=== PATIENT | male | born 1965 | race Two or more races ===

== ENCOUNTER 2021-06-13 15:54 | Inpatient (IN) | payer OTHER ==
[~2021-06-13] VITALS: Ht 167.6 cm; Wt 78.2 kg
[2021-06-13 18:05] VITALS: BP 131/87
[2021-06-13] MEDS ORDERED: MELATONIN 3 MG TABLET PO PRN (18:30)
[2021-06-13] MEDS ORDERED: DEXTROSE 50%-WATER 25 GM/50 ML SYRINGE IVP PRN (18:30)
[2021-06-13] MEDS ORDERED: ACETAMINOPHEN 325 MG TABLET PO PRN (18:30)
[2021-06-13] MEDS ORDERED: NAPHAZOLINE/PHENIR 0.025-0.3% 15 ML OPHTHALMIC SOLUTION OU PRN (20:00)
[2021-06-13] MEDS ORDERED: PNEUMOCOCCAL VACCINE POLYVALENT 0.5 ML VIAL [PPSV23] IM. ONE (20:15)
[2021-06-13] MEDS: ETHYL ALCOHOL 62% ANTISEPTIC NASAL INHALANT 0.6 ML AMPUL NASAL SCH (21:13)
[2021-06-13] MEDS: ATORVASTATIN CALCIUM 40 MG TABLET PO SCH (21:13)
[2021-06-13] MEDS: SENNA 187 MG TABLET PO SCH (21:13)
[2021-06-13] MEDS: DOCUSATE SODIUM 100 MG CAPSULE PO SCH (21:13)
[2021-06-13] MEDS: INSULIN LISPRO 100 UNITS/ML SQ PRN (21:53)
[2021-06-13 22:17] LABS: GLUCOMETER DEV NAME(LOC) 2WR.2B; GLUCOSE,POINT OF CARE 310 MG/DL (70-110)
[2021-06-14] VITALS: BP 116/72
[2021-06-14] MEDS ORDERED: ATEN-72 PO (05:49)
[2021-06-14] MEDS ORDERED: METF-1211 PO (05:49)
[2021-06-14] MEDS: FAMOTIDINE 20 MG TABLET PO SCH ×2 (06:09→16:45)
[2021-06-14 06:11] LABS: GLUCOMETER DEV NAME(LOC) 2WR.1C; GLUCOSE,POINT OF CARE 282 MG/DL (70-110)
[2021-06-14 06:46] LABS: BASOPHILS % (AUTO) 0.8 % (0.0-2.0); EOSINOPHILS % (AUTO) 1.9 % (1.0-6.0); HEMATOCRIT 40.7 % (41-53); HEMOGLOBIN 14.5 g/dL (13.5-17.5); LYMPHOCYTES # (AUTO) 2.5 K/uL (1.0-4.8); LYMPHOCYTES % (AUTO) 32.1 % (22.0-44.0); MEAN CORPUSCULAR HEMOGLOBIN 30.7 pg (26.0-34.0); MEAN CORPUSCULAR HGB CONC 35.7 G/dL (31.0-37.0); MEAN CORPUSCULAR VOLUME 86 fL (80-100); MONOCYTES # (AUTO) 0.7 K/uL (0.1-1.0); MONOCYTES % (AUTO) 9.3 % (2.0-9.0); NEUTROPHILS # (AUTO) 4.3 K/uL (1.8-7.7); NEUTROPHILS % (AUTO) 55.9 % (40.0-70.0); PLATELET COUNT (AUTO) 211 K/uL (150-450); RED BLOOD CELL COUNT(AUTO) 4.72 MIL/uL (4.50-5.90); RED CELL DISTRIBUTION WIDTH 13.1 % (11.5-14.5)
[2021-06-14] MEDS ORDERED: INSULIN GLARGINE,HUM.REC.ANLOG 100 UNITS/ML SQ SCH (07:00)
[2021-06-14 07:08] LABS: ALANINE AMINOTRANSFERASE 46 U/L (12-78); ALBUMIN 3.6 g/dL (3.4-5.0); ALKALINE PHOSPHATASE 63 U/L (46-116); ANION GAP 7 mmol/L (8-16); ASPARTATE AMINOTRANSFERASE 17 U/L (15-37); BILIRUBIN,TOTAL 0.5 mg/dL (0.1-1.0); CALCIUM, TOTAL 8.5 mg/dL (8.8-10.5); CARBON DIOXIDE 26 mmol/L (22-29); CHLORIDE 101 mmol/L (98-107); CREATININE 1.05 mg/dL (0.60-1.30); GLOMERULAR FILTR. RATE CALC > 60 mL/min (>60); GLUCOSE,RANDOM 268 mg/dL (70-110); SODIUM SERUM 134 mmol/L (136-145); TOTAL PROTEIN, SERUM 7.3 g/dL (6.4-8.2); UREA NITROGEN, BLOOD 18 mg/dL (7-18)
[2021-06-14] MEDS: GlipiZIDE 10 MG TABLET PO SCH ×2 (07:47→16:45)
[2021-06-14] MEDS: INSULIN LISPRO 100 UNITS/ML SQ PRN ×3 (07:50→17:35)
[2021-06-14] MEDS: ASPIRIN 81 MG CHEWABLE TABLET PO SCH (07:51)
[2021-06-14] MEDS: MetFORMIN HCL 500 MG TABLET PO SCH ×2 (07:52→16:52)
[2021-06-14] MEDS: ATENOLOL 50 MG TABLET PO SCH (07:52)
[2021-06-14] MEDS: DOCUSATE SODIUM 100 MG CAPSULE PO SCH ×2 (07:52→20:04)
[2021-06-14] MEDS: ETHYL ALCOHOL 62% ANTISEPTIC NASAL INHALANT 0.6 ML AMPUL NASAL SCH ×2 (07:52→20:04)
[2021-06-14] MEDS: CLOPIDOGREL BISULFATE 75 MG TABLET PO SCH (07:54)
[2021-06-14 09:29] VITALS: BP 113/70
[2021-06-14 11:41] LABS: GLUCOMETER DEV NAME(LOC) 2WR.1C; GLUCOSE,POINT OF CARE 238 MG/DL (70-110)
[2021-06-14 16:30] VITALS: BP 124/73
[2021-06-14 18:02] LABS: GLUCOMETER DEV NAME(LOC) 2WR.1C; GLUCOSE,POINT OF CARE 165 MG/DL (70-110)
[2021-06-14] MEDS: TraZODone HCL 50 MG TABLET PO SCH (20:04)
[2021-06-14] MEDS: ATORVASTATIN CALCIUM 40 MG TABLET PO SCH (20:04)
[2021-06-14] MEDS: SENNA 187 MG TABLET PO SCH (20:04)
[2021-06-15 05:16] LABS: GLUCOMETER DEV NAME(LOC) 2WR.1C; GLUCOSE,POINT OF CARE 79 MG/DL (70-110)
[2021-06-15 05:45] VITALS: BP 116/67
[2021-06-15] MEDS: FAMOTIDINE 20 MG TABLET PO SCH ×2 (05:48→16:21)
[2021-06-15 05:57] LABS: GLUCOMETER DEV NAME(LOC) 2WR.2B; GLUCOSE,POINT OF CARE 133 MG/DL (70-110)
[2021-06-15] MEDS: DOCUSATE SODIUM 100 MG CAPSULE PO SCH ×2 (07:50→20:58)
[2021-06-15] MEDS: CLOPIDOGREL BISULFATE 75 MG TABLET PO SCH (07:50)
[2021-06-15] MEDS: MetFORMIN HCL 500 MG TABLET PO SCH ×2 (07:50→16:55)
[2021-06-15] MEDS: ASPIRIN 81 MG CHEWABLE TABLET PO SCH (07:50)
[2021-06-15] MEDS: ETHYL ALCOHOL 62% ANTISEPTIC NASAL INHALANT 0.6 ML AMPUL NASAL SCH ×2 (07:51→20:58)
[2021-06-15] MEDS: INSULIN GLARGINE,HUM.REC.ANLOG 100 UNITS/ML SQ SCH (07:55)
[2021-06-15] MEDS: ATENOLOL 50 MG TABLET PO SCH (09:11)
[2021-06-15] MEDS: GlipiZIDE 10 MG TABLET PO SCH ×2 (09:11→16:21)
[2021-06-15 11:05] VITALS: BP 110/67
[2021-06-15 12:22] LABS: GLUCOMETER DEV NAME(LOC) 2WR.2B; GLUCOSE,POINT OF CARE 201 MG/DL (70-110)
[2021-06-15] MEDS: INSULIN LISPRO 100 UNITS/ML SQ PRN ×3 (12:42→21:19)
[2021-06-15 16:11] VITALS: BP 120/69
[2021-06-15 17:51] LABS: GLUCOMETER DEV NAME(LOC) 2WR.2B; GLUCOSE,POINT OF CARE 163 MG/DL (70-110)
[2021-06-15] MEDS: SENNA 187 MG TABLET PO SCH (20:58)
[2021-06-15] MEDS: ATORVASTATIN CALCIUM 40 MG TABLET PO SCH (20:58)
[2021-06-15] MEDS: TraZODone HCL 50 MG TABLET PO SCH (20:58)
[2021-06-15 23:06] LABS: GLUCOMETER DEV NAME(LOC) 2WR.2B; GLUCOSE,POINT OF CARE 148 MG/DL (70-110)
[2021-06-16 04:55] VITALS: BP 113/64
[2021-06-16] MEDS: FAMOTIDINE 20 MG TABLET PO SCH ×2 (05:43→16:33)
[2021-06-16 05:57] LABS: GLUCOMETER DEV NAME(LOC) 2WR.1C; GLUCOSE,POINT OF CARE 156 MG/DL (70-110)
[2021-06-16] MEDS: CLOPIDOGREL BISULFATE 75 MG TABLET PO SCH (07:55)
[2021-06-16] MEDS: ASPIRIN 81 MG CHEWABLE TABLET PO SCH (07:55)
[2021-06-16] MEDS: DOCUSATE SODIUM 100 MG CAPSULE PO SCH ×2 (07:55→20:18)
[2021-06-16] MEDS: MetFORMIN HCL 500 MG TABLET PO SCH ×2 (07:55→16:35)
[2021-06-16] MEDS: GlipiZIDE 10 MG TABLET PO SCH ×2 (07:55→16:33)
[2021-06-16] MEDS: ATENOLOL 50 MG TABLET PO SCH (07:55)
[2021-06-16] MEDS: INSULIN GLARGINE,HUM.REC.ANLOG 100 UNITS/ML SQ SCH (07:56)
[2021-06-16] MEDS: INSULIN LISPRO 100 UNITS/ML SQ PRN ×4 (07:57→21:04)
[2021-06-16] MEDS: ETHYL ALCOHOL 62% ANTISEPTIC NASAL INHALANT 0.6 ML AMPUL NASAL SCH ×2 (07:59→20:59)
[2021-06-16 08:02] VITALS: BP 116/62
[2021-06-16 16:03] VITALS: BP 110/73
[2021-06-16 19:31] LABS: GLUCOMETER DEV NAME(LOC) 2WR.1C; GLUCOSE,POINT OF CARE 157 MG/DL (70-110)
[2021-06-16] MEDS: SENNA 187 MG TABLET PO SCH (20:18)
[2021-06-16] MEDS: ATORVASTATIN CALCIUM 40 MG TABLET PO SCH (20:59)
[2021-06-16] MEDS: TraZODone HCL 50 MG TABLET PO SCH (20:59)
[2021-06-16 22:03] VITALS: BP 119/65
[2021-06-16 22:41] LABS: GLUCOMETER DEV NAME(LOC) 2WR.2B; GLUCOSE,POINT OF CARE 160 MG/DL (70-110)
[2021-06-17] MEDS: FAMOTIDINE 20 MG TABLET PO SCH ×2 (06:02→15:59)
[2021-06-17 06:11] LABS: GLUCOMETER DEV NAME(LOC) 2WR.2B; GLUCOSE,POINT OF CARE 146 MG/DL (70-110)
[2021-06-17] MEDS: GlipiZIDE 10 MG TABLET PO SCH ×2 (07:55→15:59)
[2021-06-17] MEDS: INSULIN GLARGINE,HUM.REC.ANLOG 100 UNITS/ML SQ SCH (07:56)
[2021-06-17] MEDS: ASPIRIN 81 MG CHEWABLE TABLET PO SCH (07:56)
[2021-06-17] MEDS: INSULIN LISPRO 100 UNITS/ML SQ PRN ×3 (07:57→20:52)
[2021-06-17] MEDS: ETHYL ALCOHOL 62% ANTISEPTIC NASAL INHALANT 0.6 ML AMPUL NASAL SCH ×2 (07:58→20:53)
[2021-06-17] MEDS: MetFORMIN HCL 500 MG TABLET PO SCH ×2 (07:58→16:35)
[2021-06-17] MEDS: ATENOLOL 50 MG TABLET PO SCH (08:21)
[2021-06-17] MEDS: CLOPIDOGREL BISULFATE 75 MG TABLET PO SCH (08:21)
[2021-06-17] MEDS: DOCUSATE SODIUM 100 MG CAPSULE PO SCH ×2 (08:21→20:55)
[2021-06-17 08:30] VITALS: BP 119/68
[2021-06-17 13:25] LABS: GLUCOMETER DEV NAME(LOC) 2WR.2B; GLUCOSE,POINT OF CARE 112 MG/DL (70-110)
[2021-06-17 17:06] LABS: GLUCOMETER DEV NAME(LOC) 2WR.2B; GLUCOSE,POINT OF CARE 185 MG/DL (70-110)
[2021-06-17 17:32] VITALS: BP 115/69
[2021-06-17] MEDS: ATORVASTATIN CALCIUM 40 MG TABLET PO SCH (20:53)
[2021-06-17] MEDS: TraZODone HCL 50 MG TABLET PO SCH (20:53)
[2021-06-17] MEDS: SENNA 187 MG TABLET PO SCH (20:55)
[2021-06-17 22:36] LABS: GLUCOMETER DEV NAME(LOC) 2WR.2B; GLUCOSE,POINT OF CARE 144 MG/DL (70-110)
[2021-06-17 23:27] VITALS: BP 122/71
[2021-06-18] MEDS: FAMOTIDINE 20 MG TABLET PO SCH ×2 (06:27→16:26)
[2021-06-18 08:00] VITALS: BP 127/78
[2021-06-18 08:31] LABS: GLUCOMETER DEV NAME(LOC) 2WR.1C; GLUCOSE,POINT OF CARE 121 MG/DL (70-110)
[2021-06-18] MEDS: DOCUSATE SODIUM 100 MG CAPSULE PO SCH ×3 (09:00→20:31)
[2021-06-18] MEDS: GlipiZIDE 10 MG TABLET PO SCH ×2 (09:09→16:26)
[2021-06-18] MEDS: MetFORMIN HCL 500 MG TABLET PO SCH ×2 (09:09→16:26)
[2021-06-18] MEDS: ATENOLOL 50 MG TABLET PO SCH (09:09)
[2021-06-18] MEDS: ASPIRIN 81 MG CHEWABLE TABLET PO SCH (09:09)
[2021-06-18] MEDS: ETHYL ALCOHOL 62% ANTISEPTIC NASAL INHALANT 0.6 ML AMPUL NASAL SCH ×2 (09:09→20:30)
[2021-06-18] MEDS: CLOPIDOGREL BISULFATE 75 MG TABLET PO SCH (09:09)
[2021-06-18] MEDS: INSULIN GLARGINE,HUM.REC.ANLOG 100 UNITS/ML SQ SCH (09:11)
[2021-06-18 12:56] LABS: GLUCOMETER DEV NAME(LOC) 2WR.2B; GLUCOSE,POINT OF CARE 107 MG/DL (70-110)
[2021-06-18 16:30] VITALS: BP 121/74
[2021-06-18 17:16] LABS: GLUCOMETER DEV NAME(LOC) 2WR.2B; GLUCOSE,POINT OF CARE 139 MG/DL (70-110)
[2021-06-18] MEDS: ATORVASTATIN CALCIUM 40 MG TABLET PO SCH (20:30)
[2021-06-18] MEDS: TraZODone HCL 50 MG TABLET PO SCH (20:30)
[2021-06-18] MEDS: SENNA 187 MG TABLET PO SCH (20:31)
[2021-06-18] MEDS: INSULIN LISPRO 100 UNITS/ML SQ PRN (20:41)
[2021-06-18 22:00] LABS: GLUCOMETER DEV NAME(LOC) 2WR.2B; GLUCOSE,POINT OF CARE 189 MG/DL (70-110)
[2021-06-19] VITALS: BP 133/75
[2021-06-19] MEDS: FAMOTIDINE 20 MG TABLET PO SCH ×2 (05:52→16:47)
[2021-06-19 06:26] LABS: GLUCOMETER DEV NAME(LOC) 2WR.2B; GLUCOSE,POINT OF CARE 127 MG/DL (70-110)
[2021-06-19 08:00] VITALS: BP 114/55
[2021-06-19] MEDS: CLOPIDOGREL BISULFATE 75 MG TABLET PO SCH (08:36)
[2021-06-19] MEDS: MetFORMIN HCL 500 MG TABLET PO SCH ×2 (08:36→16:47)
[2021-06-19] MEDS: ETHYL ALCOHOL 62% ANTISEPTIC NASAL INHALANT 0.6 ML AMPUL NASAL SCH ×2 (08:36→21:29)
[2021-06-19] MEDS: ASPIRIN 81 MG CHEWABLE TABLET PO SCH (08:36)
[2021-06-19] MEDS: ATENOLOL 50 MG TABLET PO SCH (08:36)
[2021-06-19] MEDS: GlipiZIDE 10 MG TABLET PO SCH ×2 (08:36→17:26)
[2021-06-19] MEDS: INSULIN GLARGINE,HUM.REC.ANLOG 100 UNITS/ML SQ SCH (08:38)
[2021-06-19] MEDS: DOCUSATE SODIUM 100 MG CAPSULE PO SCH ×2 (08:39→21:00)
[2021-06-19 12:31] LABS: GLUCOMETER DEV NAME(LOC) 2WR.2B; GLUCOSE,POINT OF CARE 115 MG/DL (70-110)
[2021-06-19 15:19] VITALS: BP 123/90
[2021-06-19] MEDS: HYDROCORTISONE 1% 30 GM OINTMENT TP SCH ×2 (16:46→21:24)
[2021-06-19] MEDS: INSULIN LISPRO 100 UNITS/ML SQ PRN (17:34)
[2021-06-19 18:50] LABS: GLUCOMETER DEV NAME(LOC) 2WR.2B; GLUCOSE,POINT OF CARE 148 MG/DL (70-110)
[2021-06-19] MEDS: TraZODone HCL 100 MG TABLET PO SCH (21:00)
[2021-06-19] MEDS: SENNA 187 MG TABLET PO SCH (21:00)
[2021-06-19] MEDS: ATORVASTATIN CALCIUM 40 MG TABLET PO SCH (21:24)
[2021-06-19 22:11] LABS: GLUCOMETER DEV NAME(LOC) 2WR.2B; GLUCOSE,POINT OF CARE 128 MG/DL (70-110)
[2021-06-20 05:37] VITALS: BP 106/67
[2021-06-20 06:26] LABS: GLUCOMETER DEV NAME(LOC) 2WR.1C; GLUCOSE,POINT OF CARE 74 MG/DL (70-110)
[2021-06-20] MEDS: ETHYL ALCOHOL 62% ANTISEPTIC NASAL INHALANT 0.6 ML AMPUL NASAL SCH ×2 (07:30→20:38)
[2021-06-20] MEDS: HYDROCORTISONE 1% 30 GM OINTMENT TP SCH ×2 (07:31→20:39)
[2021-06-20] MEDS: FAMOTIDINE 20 MG TABLET PO SCH ×2 (07:31→16:24)
[2021-06-20] MEDS: ASPIRIN 81 MG CHEWABLE TABLET PO SCH (07:31)
[2021-06-20] MEDS: MetFORMIN HCL 500 MG TABLET PO SCH ×2 (07:32→16:24)
[2021-06-20] MEDS: ATENOLOL 50 MG TABLET PO SCH (07:32)
[2021-06-20] MEDS: CLOPIDOGREL BISULFATE 75 MG TABLET PO SCH (07:32)
[2021-06-20] MEDS: GlipiZIDE 10 MG TABLET PO SCH ×2 (07:32→16:24)
[2021-06-20] MEDS: INSULIN GLARGINE,HUM.REC.ANLOG 100 UNITS/ML SQ SCH (07:40)
[2021-06-20 08:01] VITALS: BP 124/71
[2021-06-20] MEDS: DOCUSATE SODIUM 100 MG CAPSULE PO SCH ×2 (09:00→20:38)
[2021-06-20 16:04] VITALS: BP 117/71
[2021-06-20 17:06] LABS: GLUCOMETER DEV NAME(LOC) 2WR.2B; GLUCOSE,POINT OF CARE 110 MG/DL (70-110)
[2021-06-20] MEDS: TraZODone HCL 100 MG TABLET PO SCH (20:38)
[2021-06-20] MEDS: ATORVASTATIN CALCIUM 40 MG TABLET PO SCH (20:38)
[2021-06-20] MEDS: SENNA 187 MG TABLET PO SCH (20:39)
[2021-06-20 21:11] LABS: GLUCOMETER DEV NAME(LOC) 2WR.2B; GLUCOSE,POINT OF CARE 109 MG/DL (70-110)
[2021-06-21 05:32] LABS: GLUCOMETER DEV NAME(LOC) 2WR.1C; GLUCOSE,POINT OF CARE 129 MG/DL (70-110)
[2021-06-21] MEDS: FAMOTIDINE 20 MG TABLET PO SCH ×2 (05:46→17:26)
[2021-06-21 05:47] VITALS: BP 130/74
[2021-06-21] MEDS: MetFORMIN HCL 500 MG TABLET PO SCH ×2 (07:47→17:27)
[2021-06-21] MEDS: ETHYL ALCOHOL 62% ANTISEPTIC NASAL INHALANT 0.6 ML AMPUL NASAL SCH ×2 (07:47→20:28)
[2021-06-21] MEDS: ATENOLOL 50 MG TABLET PO SCH (07:47)
[2021-06-21] MEDS: HYDROCORTISONE 1% 30 GM OINTMENT TP SCH ×2 (07:47→20:32)
[2021-06-21] MEDS: CLOPIDOGREL BISULFATE 75 MG TABLET PO SCH (07:47)
[2021-06-21] MEDS: ASPIRIN 81 MG CHEWABLE TABLET PO SCH (07:47)
[2021-06-21] MEDS: GlipiZIDE 10 MG TABLET PO SCH ×2 (07:49→17:27)
[2021-06-21] MEDS: INSULIN GLARGINE,HUM.REC.ANLOG 100 UNITS/ML SQ SCH (07:52)
[2021-06-21 08:06] LABS: GLUCOMETER DEV NAME(LOC) 2WR.1C; GLUCOSE,POINT OF CARE 112 MG/DL (70-110)
[2021-06-21 08:30] VITALS: BP 116/71
[2021-06-21] MEDS: DOCUSATE SODIUM 100 MG CAPSULE PO SCH ×2 (09:00→20:19)
[2021-06-21] MEDS ORDERED: GLIP10 PO (10:47)
[2021-06-21] MEDS ORDERED: ATEN-72 PO (10:47)
[2021-06-21] MEDS ORDERED: DOCU-119 PO (10:47)
[2021-06-21] MEDS ORDERED: CLOP75TA60 PO (10:47)
[2021-06-21] MEDS ORDERED: ATOR40TA71 PO (10:47)
[2021-06-21] MEDS ORDERED: FAMO20 PO (10:47)
[2021-06-21] MEDS ORDERED: ASPI81 PO (10:47)
[2021-06-21] MEDS ORDERED: INSU100V SQ (10:48)
[2021-06-21] MEDS ORDERED: METF-1211 PO (10:48)
[2021-06-21] MEDS ORDERED: INSLAN SQ (10:48)
[2021-06-21] MEDS ORDERED: SENN-187 PO (10:48)
[2021-06-21] MEDS ORDERED: NAPH15DR75 OU (10:48)
[2021-06-21 14:25] LABS: GLUCOMETER DEV NAME(LOC) 2WR.1C; GLUCOSE,POINT OF CARE 122 MG/DL (70-110)
[2021-06-21 16:02] VITALS: BP 118/72
[2021-06-21] MEDS: SENNA 187 MG TABLET PO SCH (20:19)
[2021-06-21] MEDS: ATORVASTATIN CALCIUM 40 MG TABLET PO SCH (20:31)
[2021-06-21] MEDS: TraZODone HCL 100 MG TABLET PO SCH ×2 (20:32→20:34)
[2021-06-21 21:57] LABS: GLUCOMETER DEV NAME(LOC) 2WR.2B; GLUCOSE,POINT OF CARE 98 MG/DL (70-110)
[2021-06-21 23:40] LABS: GLUCOMETER DEV NAME(LOC) 2WR.1C; GLUCOSE,POINT OF CARE 134 MG/DL (70-110)
[2021-06-22] VITALS: BP 117/75
[2021-06-22] MEDS: FAMOTIDINE 20 MG TABLET PO SCH ×2 (05:58→16:05)
[2021-06-22 06:21] LABS: GLUCOMETER DEV NAME(LOC) 2WR.2B; GLUCOSE,POINT OF CARE 97 MG/DL (70-110)
[2021-06-22] MEDS: GlipiZIDE 10 MG TABLET PO SCH ×2 (07:41→16:06)
[2021-06-22] MEDS: HYDROCORTISONE 1% 30 GM OINTMENT TP SCH ×2 (07:41→21:00)
[2021-06-22] MEDS: MetFORMIN HCL 500 MG TABLET PO SCH ×2 (07:41→16:06)
[2021-06-22] MEDS: ASPIRIN 81 MG CHEWABLE TABLET PO SCH (07:41)
[2021-06-22] MEDS: ATENOLOL 50 MG TABLET PO SCH (07:41)
[2021-06-22] MEDS: CLOPIDOGREL BISULFATE 75 MG TABLET PO SCH (07:42)
[2021-06-22] MEDS: ETHYL ALCOHOL 62% ANTISEPTIC NASAL INHALANT 0.6 ML AMPUL NASAL SCH ×2 (07:42→20:59)
[2021-06-22] MEDS: INSULIN GLARGINE,HUM.REC.ANLOG 100 UNITS/ML SQ SCH (07:43)
[2021-06-22 08:01] VITALS: BP 120/56
[2021-06-22] MEDS: DOCUSATE SODIUM 100 MG CAPSULE PO SCH ×2 (08:25→21:00)
[2021-06-22 12:56] LABS: GLUCOMETER DEV NAME(LOC) 2WR.2B; GLUCOSE,POINT OF CARE 103 MG/DL (70-110)
[2021-06-22 16:30] VITALS: BP 120/65
[2021-06-22 16:51] LABS: GLUCOMETER DEV NAME(LOC) 2WR.2B; GLUCOSE,POINT OF CARE 113 MG/DL (70-110)
[2021-06-22] MEDS: ATORVASTATIN CALCIUM 40 MG TABLET PO SCH (21:00)
[2021-06-22] MEDS: SENNA 187 MG TABLET PO SCH (21:00)
[2021-06-22] MEDS: TraZODone HCL 100 MG TABLET PO SCH (21:00)
[2021-06-22] MEDS: INSULIN LISPRO 100 UNITS/ML SQ PRN (21:13)
[2021-06-22 21:51] LABS: GLUCOMETER DEV NAME(LOC) 2WR.2B; GLUCOSE,POINT OF CARE 246 MG/DL (70-110)
[2021-06-23] MEDS: FAMOTIDINE 20 MG TABLET PO SCH ×2 (05:50→16:00)
[2021-06-23 05:51] VITALS: BP 127/70
[2021-06-23 06:11] LABS: GLUCOMETER DEV NAME(LOC) 2WR.2B; GLUCOSE,POINT OF CARE 139 MG/DL (70-110)
[2021-06-23] MEDS: ASPIRIN 81 MG CHEWABLE TABLET PO SCH (07:52)
[2021-06-23] MEDS: MetFORMIN HCL 500 MG TABLET PO SCH ×2 (07:52→16:00)
[2021-06-23] MEDS: GlipiZIDE 10 MG TABLET PO SCH ×2 (07:52→16:00)
[2021-06-23] MEDS: INSULIN GLARGINE,HUM.REC.ANLOG 100 UNITS/ML SQ SCH (07:59)
[2021-06-23] MEDS: ETHYL ALCOHOL 62% ANTISEPTIC NASAL INHALANT 0.6 ML AMPUL NASAL SCH ×2 (08:04→20:00)
[2021-06-23] MEDS: HYDROCORTISONE 1% 30 GM OINTMENT TP SCH ×2 (08:46→20:00)
[2021-06-23] MEDS: ATENOLOL 50 MG TABLET PO SCH (08:46)
[2021-06-23] MEDS: CLOPIDOGREL BISULFATE 75 MG TABLET PO SCH (08:46)
[2021-06-23] MEDS: DOCUSATE SODIUM 100 MG CAPSULE PO SCH ×2 (08:47→20:01)
[2021-06-23 09:00] VITALS: BP 132/75
[2021-06-23] MEDS ORDERED: INSU100V SQ (10:35)
[2021-06-23 13:51] LABS: GLUCOMETER DEV NAME(LOC) 2WR.2B; GLUCOSE,POINT OF CARE 88 MG/DL (70-110)
[2021-06-23 16:29] VITALS: BP 126/72
[2021-06-23 17:46] LABS: GLUCOMETER DEV NAME(LOC) 2WR.1C; GLUCOSE,POINT OF CARE 125 MG/DL (70-110)
[2021-06-23] MEDS: ATORVASTATIN CALCIUM 40 MG TABLET PO SCH (20:00)
[2021-06-23] MEDS: TraZODone HCL 100 MG TABLET PO SCH (20:01)
[2021-06-23] MEDS: SENNA 187 MG TABLET PO SCH (20:01)
[2021-06-23 20:35] LABS: GLUCOMETER DEV NAME(LOC) 2WR.2B; GLUCOSE,POINT OF CARE 100 MG/DL (70-110)
[2021-06-24] VITALS: BP 112/61
[2021-06-24] MEDS: FAMOTIDINE 20 MG TABLET PO SCH ×2 (06:03→17:11)
[2021-06-24 06:16] LABS: GLUCOMETER DEV NAME(LOC) 2WR.1C; GLUCOSE,POINT OF CARE 93 MG/DL (70-110)
[2021-06-24] MEDS: ETHYL ALCOHOL 62% ANTISEPTIC NASAL INHALANT 0.6 ML AMPUL NASAL SCH ×2 (08:03→21:55)
[2021-06-24] MEDS: ASPIRIN 81 MG CHEWABLE TABLET PO SCH (08:04)
[2021-06-24] MEDS: GlipiZIDE 10 MG TABLET PO SCH ×2 (08:04→17:11)
[2021-06-24] MEDS: MetFORMIN HCL 500 MG TABLET PO SCH ×2 (08:04→17:11)
[2021-06-24] MEDS: INSULIN GLARGINE,HUM.REC.ANLOG 100 UNITS/ML SQ SCH (08:05)
[2021-06-24] MEDS: HYDROCORTISONE 1% 30 GM OINTMENT TP SCH ×2 (08:29→21:55)
[2021-06-24] MEDS: CLOPIDOGREL BISULFATE 75 MG TABLET PO SCH (08:29)
[2021-06-24] MEDS: DOCUSATE SODIUM 100 MG CAPSULE PO SCH ×2 (08:29→21:00)
[2021-06-24] MEDS: ATENOLOL 50 MG TABLET PO SCH (08:29)
[2021-06-24 09:00] VITALS: BP 118/71
[2021-06-24 15:26] LABS: GLUCOMETER DEV NAME(LOC) 2WR.1C; GLUCOSE,POINT OF CARE 86 MG/DL (70-110)
[2021-06-24 16:09] VITALS: BP 120/73
[2021-06-24 19:00] VITALS: BP 112/68
[2021-06-24 19:01] LABS: GLUCOMETER DEV NAME(LOC) 2WR.2B; GLUCOSE,POINT OF CARE 100 MG/DL (70-110)
[2021-06-24] MEDS: TraZODone HCL 100 MG TABLET PO SCH (21:00)
[2021-06-24] MEDS: SENNA 187 MG TABLET PO SCH (21:00)
[2021-06-24] MEDS: INSULIN LISPRO 100 UNITS/ML SQ PRN (21:05)
[2021-06-24] MEDS: ATORVASTATIN CALCIUM 40 MG TABLET PO SCH (21:55)
[2021-06-24 22:16] LABS: GLUCOMETER DEV NAME(LOC) 2WR.2B; GLUCOSE,POINT OF CARE 208 MG/DL (70-110)
[2021-06-25] VITALS: BP 113/65
[2021-06-25] MEDS: FAMOTIDINE 20 MG TABLET PO SCH ×2 (06:10→16:39)
[2021-06-25 06:22] LABS: GLUCOMETER DEV NAME(LOC) 2WR.1C; GLUCOSE,POINT OF CARE 106 MG/DL (70-110)
[2021-06-25 07:03] LABS: BASOPHILS % (AUTO) 0.9 % (0.0-2.0); EOSINOPHILS % (AUTO) 2.5 % (1.0-6.0); HEMATOCRIT 39.8 % (41-53); HEMOGLOBIN 14.1 g/dL (13.5-17.5); LYMPHOCYTES # (AUTO) 2.2 K/uL (1.0-4.8); LYMPHOCYTES % (AUTO) 32.9 % (22.0-44.0); MEAN CORPUSCULAR HEMOGLOBIN 30.2 pg (26.0-34.0); MEAN CORPUSCULAR HGB CONC 35.5 G/dL (31.0-37.0); MEAN CORPUSCULAR VOLUME 85 fL (80-100); MONOCYTES # (AUTO) 0.6 K/uL (0.1-1.0); MONOCYTES % (AUTO) 8.6 % (2.0-9.0); NEUTROPHILS # (AUTO) 3.7 K/uL (1.8-7.7); NEUTROPHILS % (AUTO) 55.1 % (40.0-70.0); PLATELET COUNT (AUTO) 214 K/uL (150-450); RED BLOOD CELL COUNT(AUTO) 4.68 MIL/uL (4.50-5.90)
[2021-06-25 07:35] LABS: ANION GAP 6 mmol/L (8-16); CALCIUM, TOTAL 8.9 mg/dL (8.8-10.5); CARBON DIOXIDE 30 mmol/L (22-29); CHLORIDE 102 mmol/L (98-107); CREATININE 0.75 mg/dL (0.60-1.30); GLOMERULAR FILTR. RATE CALC > 60 mL/min (>60); GLUCOSE,RANDOM 116 mg/dL (70-110); POTASSIUM 3.7 mmol/L (3.5-5.1); SODIUM SERUM 138 mmol/L (136-145); UREA NITROGEN, BLOOD 10 mg/dL (7-18)
[2021-06-25] MEDS: ETHYL ALCOHOL 62% ANTISEPTIC NASAL INHALANT 0.6 ML AMPUL NASAL SCH ×2 (07:52→20:09)
[2021-06-25] MEDS: GlipiZIDE 10 MG TABLET PO SCH ×2 (07:53→16:39)
[2021-06-25] MEDS: MetFORMIN HCL 500 MG TABLET PO SCH ×2 (07:53→16:53)
[2021-06-25] MEDS: ASPIRIN 81 MG CHEWABLE TABLET PO SCH (07:53)
[2021-06-25] MEDS: INSULIN GLARGINE,HUM.REC.ANLOG 100 UNITS/ML SQ SCH (07:54)
[2021-06-25] MEDS: HYDROCORTISONE 1% 30 GM OINTMENT TP SCH ×2 (08:23→20:09)
[2021-06-25] MEDS: CLOPIDOGREL BISULFATE 75 MG TABLET PO SCH (08:23)
[2021-06-25] MEDS: ATENOLOL 50 MG TABLET PO SCH (08:23)
[2021-06-25] MEDS: DOCUSATE SODIUM 100 MG CAPSULE PO SCH ×3 (08:26→20:11)
[2021-06-25 09:00] VITALS: BP 124/63
[2021-06-25 10:26] LABS: GLUCOMETER DEV NAME(LOC) 2WR.1C; GLUCOSE,POINT OF CARE 228 MG/DL (70-110)
[2021-06-25 13:21] LABS: GLUCOMETER DEV NAME(LOC) 2WR.2B; GLUCOSE,POINT OF CARE 81 MG/DL (70-110)
[2021-06-25 16:17] VITALS: BP 134/72
[2021-06-25] MEDS: SENNA 187 MG TABLET PO SCH ×2 (20:07→20:11)
[2021-06-25] MEDS: ATORVASTATIN CALCIUM 40 MG TABLET PO SCH (20:09)
[2021-06-25 23:36] LABS: GLUCOMETER DEV NAME(LOC) 2WR.2B; GLUCOSE,POINT OF CARE 117 MG/DL (70-110)
[2021-06-25 23:36] LABS: GLUCOMETER DEV NAME(LOC) 2WR.2B; GLUCOSE,POINT OF CARE 130 MG/DL (70-110)
[2021-06-26] VITALS: BP 128/66
[2021-06-26] MEDS: FAMOTIDINE 20 MG TABLET PO SCH ×2 (05:42→17:26)
[2021-06-26 06:11] LABS: GLUCOMETER DEV NAME(LOC) 2WR.2B; GLUCOSE,POINT OF CARE 134 MG/DL (70-110)
[2021-06-26] MEDS: ETHYL ALCOHOL 62% ANTISEPTIC NASAL INHALANT 0.6 ML AMPUL NASAL SCH ×2 (07:43→20:53)
[2021-06-26] MEDS: HYDROCORTISONE 1% 30 GM OINTMENT TP SCH ×2 (07:43→20:54)
[2021-06-26] MEDS: GlipiZIDE 10 MG TABLET PO SCH ×2 (07:44→17:26)
[2021-06-26] MEDS: ASPIRIN 81 MG CHEWABLE TABLET PO SCH (07:44)
[2021-06-26] MEDS: CLOPIDOGREL BISULFATE 75 MG TABLET PO SCH (07:44)
[2021-06-26] MEDS: MetFORMIN HCL 500 MG TABLET PO SCH ×2 (07:44→17:32)
[2021-06-26] MEDS: ATENOLOL 50 MG TABLET PO SCH (07:45)
[2021-06-26] MEDS: INSULIN GLARGINE,HUM.REC.ANLOG 100 UNITS/ML SQ SCH (07:47)
[2021-06-26] MEDS: DOCUSATE SODIUM 100 MG CAPSULE PO SCH ×2 (07:47→20:54)
[2021-06-26 08:20] VITALS: BP 135/77
[2021-06-26] MEDS: INSULIN LISPRO 100 UNITS/ML SQ PRN (12:20)
[2021-06-26 12:41] LABS: GLUCOMETER DEV NAME(LOC) 2WR.2B; GLUCOSE,POINT OF CARE 163 MG/DL (70-110)
[2021-06-26 16:13] VITALS: BP 130/68
[2021-06-26 18:45] LABS: GLUCOMETER DEV NAME(LOC) 2WR.1C; GLUCOSE,POINT OF CARE 97 MG/DL (70-110)
[2021-06-26] MEDS: ATORVASTATIN CALCIUM 40 MG TABLET PO SCH (20:53)
[2021-06-26] MEDS: SENNA 187 MG TABLET PO SCH (20:54)
[2021-06-26 22:02] LABS: GLUCOMETER DEV NAME(LOC) 2WR.1C; GLUCOSE,POINT OF CARE 114 MG/DL (70-110)
[2021-06-27] VITALS: BP 111/66
[2021-06-27] MEDS: FAMOTIDINE 20 MG TABLET PO SCH ×2 (05:54→17:17)
[2021-06-27 06:41] LABS: GLUCOMETER DEV NAME(LOC) 2WR.1C; GLUCOSE,POINT OF CARE 93 MG/DL (70-110)
[2021-06-27] MEDS: MetFORMIN HCL 500 MG TABLET PO SCH ×2 (07:59→17:36)
[2021-06-27] MEDS: GlipiZIDE 10 MG TABLET PO SCH ×2 (07:59→17:17)
[2021-06-27] MEDS: ASPIRIN 81 MG CHEWABLE TABLET PO SCH (07:59)
[2021-06-27] MEDS: ETHYL ALCOHOL 62% ANTISEPTIC NASAL INHALANT 0.6 ML AMPUL NASAL SCH ×2 (08:00→21:11)
[2021-06-27] MEDS: ATENOLOL 50 MG TABLET PO SCH (08:00)
[2021-06-27] MEDS: INSULIN GLARGINE,HUM.REC.ANLOG 100 UNITS/ML SQ SCH (08:00)
[2021-06-27] MEDS: HYDROCORTISONE 1% 30 GM OINTMENT TP SCH ×2 (08:00→21:11)
[2021-06-27] MEDS: CLOPIDOGREL BISULFATE 75 MG TABLET PO SCH (08:02)
[2021-06-27 08:15] VITALS: BP 129/72
[2021-06-27] MEDS: DOCUSATE SODIUM 100 MG CAPSULE PO SCH ×2 (08:39→21:00)
[2021-06-27 15:28] VITALS: BP 117/69
[2021-06-27 18:51] LABS: GLUCOMETER DEV NAME(LOC) 2WR.2B; GLUCOSE,POINT OF CARE 132 MG/DL (70-110)
[2021-06-27] MEDS: SENNA 187 MG TABLET PO SCH (21:00)
[2021-06-27] MEDS: ATORVASTATIN CALCIUM 40 MG TABLET PO SCH (21:11)
[2021-06-28 04:59] VITALS: BP 110/63
[2021-06-28] MEDS: FAMOTIDINE 20 MG TABLET PO SCH ×2 (05:33→15:24)
[2021-06-28 05:41] LABS: GLUCOMETER DEV NAME(LOC) 2WR.1C; GLUCOSE,POINT OF CARE 93 MG/DL (70-110)
[2021-06-28 06:36] LABS: GLUCOMETER DEV NAME(LOC) 2WR.1C; GLUCOSE,POINT OF CARE 125 MG/DL (70-110)
[2021-06-28] MEDS: MetFORMIN HCL 500 MG TABLET PO SCH ×2 (07:42→16:31)
[2021-06-28] MEDS: ASPIRIN 81 MG CHEWABLE TABLET PO SCH (07:42)
[2021-06-28] MEDS: HYDROCORTISONE 1% 30 GM OINTMENT TP SCH ×2 (07:42→20:57)
[2021-06-28] MEDS: ATENOLOL 50 MG TABLET PO SCH (07:42)
[2021-06-28] MEDS: GlipiZIDE 10 MG TABLET PO SCH ×2 (07:42→15:25)
[2021-06-28] MEDS: CLOPIDOGREL BISULFATE 75 MG TABLET PO SCH (07:42)
[2021-06-28] MEDS: INSULIN GLARGINE,HUM.REC.ANLOG 100 UNITS/ML SQ SCH (07:45)
[2021-06-28] MEDS: ETHYL ALCOHOL 62% ANTISEPTIC NASAL INHALANT 0.6 ML AMPUL NASAL SCH ×2 (07:56→20:57)
[2021-06-28 08:01] VITALS: BP 115/76
[2021-06-28] MEDS: DOCUSATE SODIUM 100 MG CAPSULE PO SCH ×2 (08:10→20:57)
[2021-06-28 16:16] LABS: GLUCOMETER DEV NAME(LOC) 2WR.1C; GLUCOSE,POINT OF CARE 72 MG/DL (70-110)
[2021-06-28 16:30] VITALS: BP 112/68
[2021-06-28] MEDS: ATORVASTATIN CALCIUM 40 MG TABLET PO SCH (20:57)
[2021-06-28] MEDS: SENNA 187 MG TABLET PO SCH (20:58)
[2021-06-28 21:21] LABS: GLUCOMETER DEV NAME(LOC) 2WR.1C; GLUCOSE,POINT OF CARE 119 MG/DL (70-110)
[2021-06-28 21:41] LABS: GLUCOMETER DEV NAME(LOC) 2WR.2B; GLUCOSE,POINT OF CARE 88 MG/DL (70-110)
[2021-06-29] MEDS: FAMOTIDINE 20 MG TABLET PO SCH (05:51)
[2021-06-29 05:52] VITALS: BP 92/55
[2021-06-29 06:06] LABS: GLUCOMETER DEV NAME(LOC) 2WR.1C; GLUCOSE,POINT OF CARE 100 MG/DL (70-110)
[2021-06-29] MEDS: ETHYL ALCOHOL 62% ANTISEPTIC NASAL INHALANT 0.6 ML AMPUL NASAL SCH (08:03)
[2021-06-29] MEDS: INSULIN GLARGINE,HUM.REC.ANLOG 100 UNITS/ML SQ SCH (08:04)
[2021-06-29] MEDS: MetFORMIN HCL 500 MG TABLET PO SCH (08:05)
[2021-06-29] MEDS: ASPIRIN 81 MG CHEWABLE TABLET PO SCH (08:05)
[2021-06-29] MEDS: CLOPIDOGREL BISULFATE 75 MG TABLET PO SCH (08:05)
[2021-06-29] MEDS: GlipiZIDE 10 MG TABLET PO SCH (08:05)
[2021-06-29] MEDS: ATENOLOL 50 MG TABLET PO SCH (08:05)
[2021-06-29] MEDS: DOCUSATE SODIUM 100 MG CAPSULE PO SCH (08:06)
[2021-06-29] MEDS: HYDROCORTISONE 1% 30 GM OINTMENT TP SCH (08:09)
[2021-06-29 09:00] VITALS: BP 114/71
[2021-06-29 21:15] LABS: GLUCOMETER DEV NAME(LOC) 2WR.1C; GLUCOSE,POINT OF CARE 98 MG/DL (70-110)
== END 2021-06-29 12:30 | disposition home or self-care (01) | DRG 56 ==
LOC: 2WR 18:03
PROVIDERS: ADMIT Physical Medicine & Rehabilitation; ATTEND Physical Medicine & Rehabilitation
PROC: 3E0234Z Introduction of Serum, Toxoid and Vaccine into Muscle, Percutaneous Approach (ICD-10-PCS; principal; 2021-06-13)
DX: G81.91 Hemiplegia, unspecified affecting right dominant side (principal); I63.89 Other cerebral infarction; R47.01 Aphasia; E11.65 Type 2 diabetes mellitus with hyperglycemia; E78.00 Pure hypercholesterolemia, unspecified; F41.9 Anxiety disorder, unspecified; K59.00 Constipation, unspecified; E73.9 Lactose intolerance, unspecified; G47.00 Insomnia, unspecified; I10 Essential (primary) hypertension; R45.1 Restlessness and agitation; R47.1 Dysarthria and anarthria; K21.9 Gastro-esophageal reflux disease without esophagitis; Z74.1 Need for assistance with personal care; Z23 Encounter for immunization; Z86.73 Personal history of transient ischemic attack (TIA), and cerebral infarction without residual deficits
CPT/HCPCS: 80048; 80053; 82962; 85025; 87081; 90732; 92507; 92523; 93970; 97032; 97110; 97112; 97116; 97162; 97166; 97530; 97535; 99366; J1815